=== PATIENT | female | born 1955 | race African-American/Black ===

== ENCOUNTER 2019-01-18 23:10 | Emergency (ER) | payer BC ==
[~2019-01-18] VITALS: Ht 165.1 cm; Wt 63.0 kg
[2019-01-19] MEDS ORDERED: CLONIDINE 0.2MG TABLET PO ONE
[2019-01-19] MEDS ORDERED: ASPIRIN 325MG TABLET PO ONE
[2019-01-19 00:18] LABS: BASOPHILS % 0.9 % (0.0-2.0); EOSINOPHILS % 5.3 % (0.0-5.0); HEMATOCRIT. 43.2 % (36.0-48.0); HEMOGLOBIN. 14.7 g/dL (12.0-16.0); MEAN CORPUSCULAR HEMOGLOBIN 29.7 pg (28.0-32.0); MEAN CORPUSCULAR VOLUME 87.4 fL (81.0-99.0); MEAN PLATELET VOLUME 7.5 fl (7.4-10.4); NEUTROPHILS % 51.8 % (40.0-76.0); PLATELET 220 x1000/uL (130-400); RED BLOOD CELL COUNT 4.94 mill/uL (4.2-5.4); RED CELL DISTRIBUTION WIDTH 14.1 % (11.6-14.6)
[2019-01-19 00:22] LABS: CHLORIDE 112 mEq/L (98-107)
[2019-01-19] MEDS ORDERED: KETOROLAC 30MG/ML VIAL IV ONE (01:00)
[2019-01-19 02:14] VITALS: BP 151/89
== END 2019-01-19 02:10 | disposition home or self-care (01) ==
LOC: ER 23:10
DX: R07.89 Other chest pain (principal); I10 Essential (primary) hypertension
CPT/HCPCS: 36415; 71045; 80053; 83880; 84484; 85025; 93005; 96374; 99284; J1885; Z7610

== ENCOUNTER 2023-05-16 05:36 | Emergency (ER) | payer BC ==
[~2023-05-16] VITALS: Ht 165.1 cm; Wt 66.2 kg
[2023-05-16 05:46] VITALS: O2SAT 98
[2023-05-16 06:12] VITALS: TEMP 97.2
[2023-05-16 06:30] VITALS: BP 178/97; PULSE 67; RESP 16
== END 2023-05-16 06:34 | disposition left against medical advice (07) ==
LOC: ER 05:36
DX: Z53.21 Procedure and treatment not carried out due to patient leaving prior to being seen by health care provider (principal)
CPT/HCPCS: 93005; 99281

== ENCOUNTER 2023-11-10 20:32 | Emergency (ER) | payer BC ==
[~2023-11-10] VITALS: Ht 167.6 cm; Wt 64.0 kg
[2023-11-10 21:07] VITALS: O2SAT 99
[2023-11-10 22:43] LABS: CLARITY URINE CLEAR (CLEAR); COLOR URINE YELLOW (YELLOW); GLUCOSE URINE NEGATIVE (NEGATIVE); KETONES URINE NEGATIVE (NEGATIVE); LEUKOCYTE ESTERASE URINE 3+ (NEGATIVE); NITRITE URINE NEGATIVE (NEGATIVE); OCCULT BLOOD URINE NEGATIVE (NEGATIVE); PH URINE 8.5 (4.5-8.0); PROTEIN URINE NEGATIVE (NEGATIVE)
[2023-11-10 22:52] LABS: BACTERIA URINE NONE SEEN; CALCIUM OXALATE CRYSTALS URINE 1+ /lpf; RBC URINE 0-2 /hpf (0-2); SQUAMOUS EPITHELIAL CELL URINE 1+ /lpf (RARE/1+)
[2023-11-10] MEDS ORDERED: ACETAMINOPHEN 325MG TABLET PO ONE (23:00)
[2023-11-10 23:05] LABS: BASOPHILS % 0.5 % (0.0-2.0); EOSINOPHILS % 4.3 % (0.0-5.0); HEMATOCRIT. 46.4 % (36.0-48.0); HEMOGLOBIN. 15.7 g/dL (12.0-16.0); LYMPHOCYTES % 37.6 % (20.0-50.0); MEAN CORPUSCULAR HEMOGLOBIN 29.7 pg (28.0-32.0); MEAN CORPUSCULAR HGB CONC 33.9 g/dL (31.0-37.0); MEAN CORPUSCULAR VOLUME 87.6 fL (81.0-99.0); MONOCYTES % 6.9 % (2.0-8.0); NEUTROPHILS % 50.7 % (40.0-76.0); PLATELET 202 x1000/uL (130-400); RED BLOOD CELL COUNT 5.29 mill/uL (4.2-5.4); RED CELL DISTRIBUTION WIDTH 14.6 % (11.6-14.6); WHITE BLOOD COUNT 4.2 x1000/uL (4.5-11.0)
[2023-11-10 23:19] LABS: CARBON DIOXIDE 29 mEq/L (21-32); CHLORIDE 107 mEq/L (98-107); GLUCOSE 94 mg/dL (70-105); POTASSIUM 4.2 mEq/L (3.5-5.1); SODIUM 140 mEq/L (136-145); UREA NITROGEN BLOOD 16 mg/dL (9-23)
[2023-11-10 23:20] LABS: ALANINE AMINOTRANSFERASE 9 IU/L (10-49); ALBUMIN 4.7 g/dL (3.2-4.8); ASPARTATE AMINOTRANSFERASE 20 IU/L (<34); BILIRUBIN TOTAL 0.5 mg/dL (0.1-1.0); CALCIUM 9.7 mg/dL (8.7-10.4); CREATININE 0.8 mg/dL (0.6-1.0); PROTEIN TOTAL 7.6 g/dL (6.0-8.3)
[2023-11-11 00:30] VITALS: BP 130/80; PULSE 78; RESP 18; TEMP 97.9
== END 2023-11-11 01:12 | disposition home or self-care (01) ==
LOC: ER 20:32
DX: I10 Essential (primary) hypertension (principal); Z98.890 Other specified postprocedural states; Z86.59 Personal history of other mental and behavioral disorders
CPT/HCPCS: 36415; 80053; 81003; 85025; 93005; 99284